=== PATIENT | female | born 1995 | race Caucasian/White ===

== ENCOUNTER 2024-02-08 03:08 | Observation (INO) | payer SELFPAY ==
[2024-02-08] VITALS (18 sets, daily range): BP systolic 94–118; BP diastolic 61–85; PULSE 68–102; RESP 6–22; TEMP 36.6–36.7; O2SAT 91–100; BMI 30.9
[2024-02-08] MEDS: metroNIDAZOLE IV 500 MG/100 ML PREMIX 100 MG IV ×2 (05:04→12:58)
[2024-02-08] MEDS: sodium chloride 0.9% 1,000 ML 125 ML IV ×2 (05:06→12:59)
[2024-02-08] MEDS: ciprofloxacin 400 MG/200 ML PREMIX 200 MG IV (05:07)
[2024-02-08] MEDS: HYDROmorphone 1 mg/mL INJ 1 mL IV ×2 (05:09→08:45)
[2024-02-08 06:09] LABS: Basophils % 0.2 %; Eosinophils # 0.2 10^3/uL (0.0-0.8); Eosinophils % 4.5 %; Hematocrit 30.5 % (36-47); Lymphocytes # 1.2 10^3/uL (0.8-4.8); Lymphocytes % 27.1 %; Mean Corpuscular HGB Conc 31.1 g/dL (30-55); Mean Corpuscular Hemoglobin 25.7 pg (27-33); Mean Corpuscular Volume 82.7 fl (85-98); Mean Platelet Volume 8.4 fL (7.4-10.4); Monocytes # 0.4 10^3/uL (0.2-0.9); Monocytes % 9.3 %; Neutrophils % 58.7 %; Nucleated Red Blood Cells % 0 %; Platelet Count 191 10^3/cmm (157-399); Red Blood Count 3.69 10^6/uL (3.85-5.65); Red Cell Distribution Width 14.1 % (12.1-15.1); White Blood Count 4.43 10^3/uL (3.29-11.43)
[2024-02-08 06:27] LABS: Alanine Aminotransferase 12 U/L (0-33); Albumin Level 3.5 g/dL (3.5-5.2); Alkaline Phosphatase 72 U/L (35-105); Anion Gap 11.9 (5-19); Aspartate Amino Transferase 18 U/L (0-32); Blood Urea Nitrogen 10 mg/dL (6-20); Calcium 7.8 mg/dL (8.5-10.5); Carbon Dioxide 25 mmol/L (22-29); Chloride 107 mmol/L (98-107); Creatinine Clr Calc Pharmacy 153.6717; Globulin 2.3 g/dL (1.3-4.6); Glomerular Filtration Rate 118.2 mL/min (90-130); Glucose 115 mg/dL (65-115); Osmolality Calculated 290 mOsm/kg (285-295); Potassium 3.9 mmol/L (3.5-5.1); Sodium 140 mmol/L (136-145); Total Bilirubin 0.4 mg/dL (0.15-1.2); Total Protein 5.8 g/dL (6.6-8.7)
--- NOTE | 2024-02-08 08:12 | PC.PHAR ---
PT HAS 2 OTHER MEDICATIONS FILLED AT [facility] IN [place]. QUETIAPINE 50MG BID 12/27/23 30DS AND SUBOXONE 8-2MG 2.5 FILMS DAILY. WILL FOLLOW UP WHEN THEY OPEN AT 9AM.
--- NOTE | 2024-02-08 09:19 | P.HP_ITS ---
Providers/Chief Complaint 2 Admitting Physician: Willy Maradiaga DO History of Present Illness Corinne Louis is a 28 year old female Who presented to an outside hospital with a greater than 1 day history of right lower quadrant abdominal pain. Pain is sharp and constant and does not radiate. Palpation and movement makes pain worse. Nothing makes pain better. CT of the abdomen pelvis at the outside hospital showed acute appendicitis. She does admit to anorexia. Denies any fever, diarrhea, constipation, hematochezia and/or melena. Review of Systems 2 General: Reports: 10 or more systems reviewed and unremarkable except in HPI and below Medications/Allergies Home Medications Medication Instructions Recorded Confirmed Last Taken Type benztropine 0.5 mg tablet 0.5 mg PO DAILY 02/08/24 02/08/24 02/06/24 History bupropion HCl 300 mg 24 hr tablet, 300 mg PO QAM 02/08/24 02/08/24 02/06/24 History extended release (Wellbutrin XL) duloxetine 30 mg capsule,delayed 30 mg PO DAILY 02/08/24 02/08/24 02/06/24 History release duloxetine 60 mg capsule,delayed 60 mg PO DAILY 02/08/24 02/08/24 02/06/24 History release gabapentin 400 mg capsule 400 mg PO TID 02/08/24 02/08/24 02/06/24 History hydroxyzine HCl 50 mg tablet 50 mg PO QID 02/08/24 02/08/24 02/06/24 History Allergies Allergy/AdvReac Type Severity Reaction Status Date / Time Penicillins AdvReac Severe ALGY-Anaphy Verified 02/08/24 03:44 laxis PFSH Acute 2 PFSH: Family History Denies family history of Colon cancer Ovarian cancer Prostate cancer Diabetes Heart disease Hyperlipidemia Breast cancer Hypertension Uterine cancer Thyroid disease Stroke Vitals/I&O/Wt Last Vital Signs Temp 98.1 F 02/08/24 07:34 Pulse 78 02/08/24 07:34 Resp 14 02/08/24 08:45 BP 101/64 02/08/24 07:34 Pulse Ox 94 02/08/24 07:34 O2 Del Method Room Air 02/08/24 07:34 02/07/24 02/08/24 02/08/24 22:59 06:59 14:59 Intake Total 300 / 300 Balance 300 / 300 Weight last 48 hrs Weight 191 lb 11.2 oz Weight 191 lb 11.2 oz Physical Exam 2 Narrative: General : Patient is well developed , no acute distress, oriented x3 Head : Normal cephalic, a-traumatic. Ears : Pinnae and external canal are normal. Hearing is normal. Eyes : PERRLA, Sclera and injection are normal. No conjunctival discharge. Nose : Mucous membranes are without erythema. Throat : buccal mucosa is normal, gums are without significant recession or hypertrophy. Lungs : Equal chest rise bilaterally, no use of accessory muscles, trachea is midline. Cor : Rate and rhythm are normal. Abdomen : Soft, ND, tender to palpation right lower quadrant, negative Rovsing's, no g/r/m Extremities : No edema, no cyanosis or clubbing, dorsalis pedis pulses are present bilaterally, non-tender to palpation of calves. Upper extremities are normal bilaterally. Back : non-tender to palpation, no CVA tenderness. Neuro : CN II - XII intact, Upper and lower extremities have equal and full strength Data 02/08/24 05:59 02/08/24 05:59 A&P Assessment and plan (1) Acute appendicitis: Plan Laparoscopic Appendectomy The risks and benefits of the procedure, including but not limited to, bleeding, infection, scar, numbness, pain, damage to surrounding structures, conversion to an open procedure, were explained to the patient. He is understanding of the risks and wishes to proceed. Attestations 2 Medical Necessity Statement*: Will be admitted to observation. How long she needs to be in the hospital is dependent on intraoperative findings Coding Level of Care Code 50150 Diagnoses Acute appendicitis K35.80
--- NOTE | 2024-02-08 09:23 | PC.CHAP ---
Pastoral Care Encounter/Spiritual Assessment Type of Contact [] Declined curtain worker visit [] Patient/Family/Request visit [] Outpatient visit [] Follow-up visit [] Physician referral [] Code/Alert [x] Routine visit [] Staff referral [] Actively dying [] Patient sleeping [] Family support [] [] Out of room [] Palliative care [] [] Receiving care in room [] Pre-surgical visit [] Trauma [] Long length of stay [] ICU visit [] Other: Relational/Emotional Strength [x] Patient feels connected with others/family/visitors/staff [] Distress [] Loneliness/isolation [] Abandonment Spirituality of Patient [] Person of Aye [] Attends Gnosticist of their Aye [x] Believes in Prayer [] Reads Bible or Voodoo materials [] There are Spiritual issues to be addressed Lawn Mower Interventions [x] Prayer [] Active listening [] Non-anxious presence [x] Spiritual/emotional support [] Crisis/trauma care [] Spiritual counseling [] Bereavement support [] Provided bereavement packet [] Provided Bible/devotional materials [] Provided toy/stuffed animal, coloring book to patient or family member [] Provided Communion [] Anointing/[place] [] Salvation [x] Completed spiritual assessment [] Other: Impact on Illness or Injury [] Angry [] Fearful [] Anxious [] Often cries [] Exhaustion [] Unable to work [] Unable to attend latter-day [] Unable to walk/stand [] Unable to read [] Unable to drive [] Unable to eat/drink [] Unable to sleep [] Unable to be with family [] Patient intubated [] Other: Summary Time spent with patient 5 min
[2024-02-08] MEDS: sodium chloride 0.9% 1,000 ML 30 ML IV (10:12)
--- NOTE | 2024-02-08 10:12 | P.ANESASSM_ITS ---
Pre-Anesthetic Assessment Height/Weight: Height 1.68 m Weight 86.954 kg Temp Pulse Resp BP Pulse Ox O2 Del Method 98.1 F 78 14 101/64 94 Room Air 02/08/24 07:34 02/08/24 07:34 02/08/24 08:45 02/08/24 07:34 02/08/24 07:34 02/08/24 07:34 Preop Diagnosis: appendicitis Operation Date: 02/08/24 13:40 Proposed Procedures p Laparoscopic Appendectomy(Not Applicable) - Willy Maradiaga DO Familial anesthetic complications: None Was Beta Rea taken within 24 hours: N/A Was Clonidine taken within 24 hours: N/A Last intake: >8 hours NPO liquids and solids Social Tobacco and No alcohol vapes daily Exam alert, oriented x 3 and regular rate & rhythm Airway Mallampati: Class II Dentition: false (upper and lower) History/ROS No significant history except as noted Pulmonary None reported CV/HEM None reported None reported Hepatic None reported GI None reported Metabolic None reported Musc/skel chronic pain in neck and back Neuropsych None reported Anesthetic Plan ASA status: 2 Anesthesia: Anesthesia Evaluation and General Risk of > 500 ml blood loss (7ml/kg in children): No Medications/Allergies Home Medications Medication Instructions Recorded Confirmed Last Taken Type benztropine 0.5 mg tablet 0.5 mg PO DAILY 02/08/24 02/08/24 02/06/24 History bupropion HCl 300 mg 24 hr tablet, 300 mg PO QAM 02/08/24 02/08/24 02/06/24 History extended release (Wellbutrin XL) duloxetine 30 mg capsule,delayed 30 mg PO DAILY 02/08/24 02/08/24 02/06/24 History release duloxetine 60 mg capsule,delayed 60 mg PO DAILY 02/08/24 02/08/24 02/06/24 History release gabapentin 400 mg capsule 400 mg PO TID 02/08/24 02/08/24 02/06/24 History hydroxyzine HCl 50 mg tablet 50 mg PO QID 02/08/24 02/08/24 02/06/24 History Allergies Allergy/AdvReac Type Severity Reaction Status Date / Time Penicillins AdvReac Severe ALGY-Anaphy Verified 02/08/24 03:44 laxis Current Medications Generic Name Dose Route Start Last Admin Trade Name Freq PRN Reason Stop Dose Admin Hydromorphone HCl 1 mg 02/08/24 03:55 02/08/24 08:45 Hydromorphone 1 Mg/Ml Inj 1 Ml IV 1 mg Q3H PRN Administration PAIN Metronidazole 500 mg in 100 mls @ 100 mls/hr 02/08/24 04:00 02/08/24 06:23 Flagyl Iv IV Infused Q8H RHIANNON Infusion Protocol Ciprofloxacin/Dextrose 400 mg in 200 mls @ 200 mls/hr 02/08/24 04:15 02/08/24 06:24 Cipro IV Infused Q12H RHIANNON Infusion Protocol Sodium Chloride 1,000 mls @ 125 mls/hr 02/08/24 05:00 02/08/24 05:06 Sodium Chloride 0.9% IV 125 mls/hr .Q8H RHIANNON Administration PFSH Anesthesia Family History Denies family history of Colon cancer Ovarian cancer Prostate cancer Diabetes Heart disease Hyperlipidemia Breast cancer Hypertension Uterine cancer Thyroid disease Stroke Data Anesthesia 02/08/24 05:59 02/08/24 05:59 Short CBC 02/08/24 Range/Units 05:59 WBC 4.43 (3.29-11.43) 10^3/uL Hgb 9.50 L (11.27-16.99) g/dL Hct 30.5 L (36-47) % MCV 82.7 L (85-98) fl Plt Count 191 (157-399) 10^3/cmm Neut % (Auto) 58.7 % Neut # (Auto) 2.60 (1.8-7.7) 10^3/uL BMP 02/08/24 05:59 Sodium 140 Potassium 3.9 Chloride 107 Carbon Dioxide 25 BUN 10 Creatinine 0.6 Glucose 115 Calcium 7.8 L Liver Function 02/08/24 Range/Units 05:59 Total Bilirubin 0.4 (0.15-1.2) mg/dL AST 18 (0-32) U/L ALT 12 (0-33) U/L Alkaline Phosphatase 72 (35-105) U/L Albumin 3.5 (3.5-5.2) g/dL Cardiac Studies: 2 No Data to Display
[2024-02-08] MEDS: scopolamine 1.5 Patch 1 PATCH TRANSDERMA (10:14)
[2024-02-08] MEDS: lidocaine-epi 2% PF 1:200,000 20 mL SDV XX (10:47)
--- NOTE | 2024-02-08 11:09 | P.OP_ITS ---
Operative Report Date of procedure: February 08, 2024 Pre-op diagnosis: Acute appendicitis Post-op diagnosis: same Procedure done: Laparoscopic appendectomy Implants: none Specimens removed/disposition: Appendix Surgeon: Willy Maradiaga DO Anesthesia: General and Local Estimated blood loss (mL): 5 Complications: None apparent Brief History: This is a very pleasant 28-year-old female who presents to the hospital with abdominal pain. She is diagnosed with acute appendicitis. Laparoscopic appendectomy was indicated. The risks and benefits were explained and documented. Procedure: Patient was wheeled into the operative room and placed on the OR table in a supine position. Abdomen was inspected prepped and draped in usual sterile fashion. Time-out was performed and all present were in agreement. A 15 blade scalp was used to make a stab incision in the left upper quadrant and intra- abdominal insufflation was achieved using a Veress needle. After localizing the tissue incisions were made and a 12 millimeter trocar was placed into the umbilicus as well as a 5mm in the right lower quadrant and a 5 mm in the left lower quadrant . The appendix was identified and was mildly inflamed. I used the Voyant to ligate the mesoappendix at the base. I then used 2 PDS endo-loops to snare the base of the appendix. I then used the Voyant to ligate the appendix distally. The appendix was removed from the abdomen using an Endo- Catch bag through the umbilical incision. I examined the abdomen and no further pathology was identified. Hemostasis was noted. I then closed the umbilical site with a Jimenez-Karma and 0 Vicryl suture in a figure of 8 fashion. All ports removed. Skin was washed and dried. Incisions were closed with 4 O Vicryl in a subcuticular interrupted fashion. Skin glue was applied. Patient tolerated the procedure well.
--- NOTE | 2024-02-08 11:13 | P.DS_ITS ---
Discharge Providers Date of Admission: 02/08/24 03:08 Date of Discharge: February 08, 2024 Attending Provider at Admission: Willy Maradiaga DO Attending Provider at Discharge: Willy Maradiaga DO Diagnoses at Discharge Discharge Diagnosis (1) Acute appendicitis: Status: Acute Hospital Course Hospital Course This very pleasant 78-year-old female presented to the hospital with acute appendicitis. She underwent laparoscopic appendectomy. Her appendix was mildly inflamed. She was discharged home in good condition postoperatively Physical Exam Narrative: General : Patient is well developed , no acute distress, oriented x3 Head : Normal cephalic, a-traumatic. Ears : Pinnae and external canal are normal. Hearing is normal. Eyes : PERRLA, Sclera and injection are normal. No conjunctival discharge. Nose : Mucous membranes are without erythema. Throat : buccal mucosa is normal, gums are without significant recession or hypertrophy. Lungs : Equal chest rise bilaterally, no use of accessory muscles, trachea is midline. Cor : Rate and rhythm are normal. Abdomen : Soft, ND, appropriately tender, no g/r/m Extremities : No edema, no cyanosis or clubbing, dorsalis pedis pulses are present bilaterally, non-tender to palpation of calves. Upper extremities are normal bilaterally. Back : non-tender to palpation, no CVA tenderness. Neuro : CN II - XII intact, Upper and lower extremities have equal and full strength Discharge Data Studies Completed and Pending Laboratory Results WBC 4.43 10^3/uL (3.29-11.43) 02/08/24 05:59 RBC 3.69 10^6/uL (3.85-5.65) L 02/08/24 05:59 Hgb 9.50 g/dL (11.27-16.99) L 02/08/24 05:59 Hct 30.5 % (36-47) L 02/08/24 05:59 MCV 82.7 fl (85-98) L 02/08/24 05:59 MCH 25.7 pg (27-33) L 02/08/24 05:59 MCHC 31.1 g/dL (30-55) 02/08/24 05:59 RDW 14.1 % (12.1-15.1) 02/08/24 05:59 Plt Count 191 10^3/cmm (157-399) 02/08/24 05:59 MPV 8.4 fL (7.4-10.4) 02/08/24 05:59 Neut % (Auto) 58.7 % 02/08/24 05:59 Lymph % (Auto) 27.1 % 02/08/24 05:59 [place] % (Auto) 9.3 % 02/08/24 05:59 Eos % (Auto) 4.5 % 02/08/24 05:59 Baso % (Auto) 0.2 % 02/08/24 05:59 Neut # (Auto) 2.60 10^3/uL (1.8-7.7) 02/08/24 05:59 Lymph # (Auto) 1.2 10^3/uL (0.8-4.8) 02/08/24 05:59 [place] # (Auto) 0.4 10^3/uL (0.2-0.9) 02/08/24 05:59 Eos # (Auto) 0.2 10^3/uL (0.0-0.8) 02/08/24 05:59 Baso # (Auto) 0.0 10^3/uL (0.0-0.1) 02/08/24 05:59 Nucleated RBC % (auto) 0 % 02/08/24 05:59 Nucleated RBCs # 0.0 /100WBC 02/08/24 05:59 Sodium 140 mmol/L (136-145) 02/08/24 05:59 Potassium 3.9 mmol/L (3.5-5.1) 02/08/24 05:59 Chloride 107 mmol/L (98-107) 02/08/24 05:59 Carbon Dioxide 25 mmol/L (22-29) 02/08/24 05:59 Anion Gap 11.9 (5-19) 02/08/24 05:59 BUN 10 mg/dL (6-20) 02/08/24 05:59 Creatinine 0.6 mg/dL (0.5-0.9) 02/08/24 05:59 GFR Calculation 118.2 mL/min (90-130) 02/08/24 05:59 Glucose 115 mg/dL (65-115) 02/08/24 05:59 Calculated Osmolality 290 mOsm/kg (285-295) 02/08/24 05:59 Calcium 7.8 mg/dL (8.5-10.5) L 02/08/24 05:59 Total Bilirubin 0.4 mg/dL (0.15-1.2) 02/08/24 05:59 AST 18 U/L (0-32) 02/08/24 05:59 ALT 12 U/L (0-33) 02/08/24 05:59 Alkaline Phosphatase 72 U/L (35-105) 02/08/24 05:59 Total Protein 5.8 g/dL (6.6-8.7) L 02/08/24 05:59 Albumin 3.5 g/dL (3.5-5.2) 02/08/24 05:59 Globulin 2.3 g/dL (1.3-4.6) 02/08/24 05:59 Procedures Performed Laparoscopic appendectomy Vitals Last Vital Signs Temp 98.1 F 02/08/24 07:34 Pulse 78 02/08/24 07:34 Resp 14 02/08/24 08:45 BP 101/64 02/08/24 07:34 Pulse Ox 94 02/08/24 07:34 O2 Del Method Room Air 02/08/24 07:34 Discharge Plan Discharge Patient Disposition: Home Condition: Stable Prescriptions: New hydrocodone-acetaminophen 7.5-325 mg tablet 1 tab PO Q6H PRN (Reason: pain) Qty: 20 0RF docusate sodium [Colace] 100 mg capsule 100 mg PO BID Qty: 10 0RF clindamycin HCl 150 mg capsule 150 mg PO QID 7 Days Qty: 28 0RF Continued benztropine 0.5 mg tablet 0.5 mg PO DAILY gabapentin 400 mg capsule 400 mg PO TID hydroxyzine HCl 50 mg tablet 50 mg PO QID Wellbutrin XL 300 mg Tablet Extended Release 24 Hr 300 mg PO QAM duloxetine 30 mg capsule,delayed release(DR/EC) 30 mg PO DAILY Rx Instructions: ALONG WITH 60MG TO = 90MG TOTAL duloxetine 60 mg capsule,delayed release(DR/EC) 60 mg PO DAILY Rx Instructions: ALONG WITH 30MG TO = 90MG TOTAL Discharge Orders: Discharge Order (Routine); Ordered 02/08/24 Ordered By: Willy Maradiaga Referrals: Willy Maradiaga DO [Physician] - 2 weeks Discharge Diet: Advance as tolerated Discharge Activity: Resume usual activity Patient Instructions: Opioid Safety, Post Anesthesia Care Activity Restrictions/Additional Instructions: Do not soak incisions underwater for 2 weeks. Shower regularly. Discharge Attestations Time Spent in Discharge Care*: less than 30 min Quality Metrics Clinical Quality Measures [ No reported AMI, CVA or VTE this stay] Coding Level of Care Code Acute Code for [facility] Fwd Diagnoses Acute appendicitis K35.80
[2024-02-08] MEDS: ondansetron 2 mg/ML SDV 2 mL 4 MG IVP ×2 (11:48→11:55)
[2024-02-08] MEDS: HYDROcodone-acetaminophen 7.5-325 mg Tablet 1 TAB PO (13:15)
--- NOTE | 2024-02-08 14:14 | ANE.PACU2 ---
Inpatient post-anesthesia follow up: Airway intact: Yes Vital signs: Temperature 98.0 F Pulse Rate 79 Respiratory Rate 15 Blood Pressure 96/61 Pulse Oximetry 95 Oxygen Delivery Me thod [ Room Air Current Rate & Del ant] Oxygen Delivery Me thod Room Air Oxygen Flow Rate 8 Fraction of Inspir ed Oxygen Hydration adequate: Yes Nausea and vomiting: No Pain level: 3 Mental status: Baseline
--- NOTE | 2024-02-08 14:28 | PC.NURSE ---
Patient has ambulated, used the bathroom to urinate, and was able to tolerate her diet. Patient's pain is manageable at this time.
== END 2024-02-08 14:29 | disposition home or self-care (01) ==
PROVIDERS: Admitting Provider Surgery; Visit Provider Surgery
PROC: 0DTJ4ZZ Resection of Appendix, Percutaneous Endoscopic Approach (ICD-10-PCS; CPT 44970; principal; 2024-02-08 13:40)
DX: K35.80 Unspecified acute appendicitis (principal)
CPT/HCPCS: 44970; 36415; 80053; 85025; 88304; G0378; G0379; J0330; J0744; J1100; J1170; J1200; J2250; J2405; J2704; J2710; J3010; J3490; J7030